=== PATIENT | female | born 1990 | race Caucasian/White ===

== ENCOUNTER 2021-12-01 07:42 | Outpatient (CLI) | payer BC | END 2021-12-01 07:43 | disposition home or self-care (01) | LOC: LAB.N 07:42 | DX: Z34.00 Encounter for supervision of normal first pregnancy, unspecified trimester (principal) | CPT/HCPCS: 36415; 84702 ==

== ENCOUNTER 2021-12-03 07:26 | Outpatient (CLI) | payer BC | END 2021-12-03 07:27 | disposition home or self-care (01) | LOC: LAB.N 07:26 | DX: Z34.00 Encounter for supervision of normal first pregnancy, unspecified trimester (principal) | CPT/HCPCS: 36415; 84702 ==